=== PATIENT | male | born 1970 | race Caucasian/White ===

== ENCOUNTER 2021-02-19 11:26 | Inpatient (IN) | payer SELFPAY ==
--- NOTE | 2021-02-19 14:10 | RAD REPORT ---
EXAM DESCRIPTION: RAD - Chest Single View - 02/19/2021 2:02 pm CLINICAL HISTORY: SOB Chest pain. COMPARISON: No comparisons FINDINGS: Portable technique limits examination quality. Significant bilaterally pulmonary opacities are present, most notable and significantly worse involvi ng the left lung, most compatible with pulmonary infection. The heart is normal in size. No displaced fractures.
[2021-02-19 15:53] LABS: Absolute Lymphocytes (CBC) 0.9 K/uL (0.7-4.9); Basophils % 0.4 % (0-1.3); Hematocrit 42.5 % (39.6-49.0); Lymphocytes % 7.6 % (15.3-44.8); MPV 9.5 fL (7.6-11.3); RBC Red Blood Cell Count 4.67 M/uL (4.33-5.43)
[2021-02-19 15:58] LABS: Protime INR 1.26
[2021-02-19 16:11] LABS: ALT/SGPT 88 U/L (12-78); AST/SGOT 50 U/L (15-37); Albumin 2.6 g/dL (3.4-5.0); Alkaline Phosphatase 73 U/L (45-117); BUN Blood Urea Nitrogen 25 mg/dL (7-18); Bicarbonate 28 mmol/L (21-32); Bilirubin Direct 0.2 mg/dL (0-0.2); Bilirubin Total 0.5 mg/dL (0.2-1.0); Glucose Level 257 mg/dL (74-106); Magnesium 2.4 mg/dL (1.8-2.4); NT PRO-BNP 17 pg/mL (<125); Potassium 4.4 mmol/L (3.5-5.1); Protein, Total 7.5 g/dL (6.4-8.2); Sodium Level 136 mmol/L (136-145); Troponin (Emerg Dept Use Only) < 0.02 ng/mL (0.0-0.045)
--- NOTE | 2021-02-19 17:27 | EDPHYS ---
Physician Documentation [facility] Name: Shashank Mariano Jr Age: 51 yrs Sex: Male : 1970 Arrival Date: 02/19/2021 Time: 11:30 Bed 24 Private MD: ED Physician Derrick Fatima HPI: 02/19 19:55 This 51 yrs old Male presents to ER via Ambulatory with complaints of kdr Shortness Of Breath - covid+. 19:55 The patient has shortness of breath at rest, with light activity. Onset: The kdr symptoms/episode began/occurred gradually, 3 day(s) ago. Duration: The symptoms are continuous, and are steadily getting worse. The patient's shortness of breath is aggravated by coughing, eating, exertion, light activity. Associated signs and symptoms: Pertinent positives: non-productive cough, Pertinent negatives: fever, hemoptysis, visual changes. Severity of symptoms: At their worst the symptoms were moderate in the emergency department the symptoms are unchanged. The patient has not experienced similar symptoms in the past. The patient has been recently seen by a physician:. Patient was diagnosed with Covid on February 19. Historical: - Allergies: 13:28 No Known Allergies; kg - Home Meds: 13:28 Lisinopril Oral BID [Active]; amlodipine 2.5 mg tab 1 tab once daily [Active]; kg carvedilol 25 mg oral tab 1 tab 2 times per day [Active]; - PMHx: 13:28 Hypertensive disorder; kg - PSHx: 13:28 None; kg - Immunization history:: Adult Immunizations not up to date, Client reports having NOT received the Covid vaccine. - Social history:: Smoking status: Patient denies any tobacco usage or history of. Patient uses alcohol, occasionally. ROS: 19:55 Constitutional: Negative for fever, chills, and weight loss, Eyes: Negative for injury, kdr pain, redness, and discharge, ENT: Negative for injury, pain, and discharge, Neck: Negative for injury, pain, and swelling, Cardiovascular: Negative for chest pain, palpitations, and edema, Abdomen/GI: Negative for abdominal pain, nausea, vomiting, diarrhea, and constipation, Back: Negative for injury and pain, : Negative for injury, bleeding, discharge, and swelling, MS/Extremity: Negative for injury and deformity, Skin: Negative for injury, rash, and discoloration, Neuro: Negative for headache, weakness, numbness, tingling, and seizure activity. Psych: Negative for depression, anxiety, suicide ideation, homicidal ideation, and hallucinations, Allergy/Immunology: Negative for hives, rash, and allergies, Endocrine: Negative for neck swelling, polydipsia, polyuria, polyphagia, and marked weight changes, Hematologic/Lymphatic: Negative for swollen nodes, abnormal bleeding, and unusual bruising. 19:55 Respiratory: Positive for dyspnea on exertion, shortness of breath, at rest. Exam: 19:55 Constitutional: This is a well developed, well nourished patient who is awake, alert, kdr and in no acute distress. Head/Face: Normocephalic, atraumatic. Eyes: Pupils equal round and reactive to light, extra-ocular motions intact. Lids and lashes normal. Conjunctiva and sclera are non-icteric and not injected. Cornea within normal limits. Periorbital areas with no swelling, redness, or edema. Neck: Trachea midline, no thyromegaly or masses palpated, and no cervical lymphadenopathy. Supple, full range of motion without nuchal rigidity, or vertebral point tenderness. No Meningismus. Chest/axilla: Normal chest wall appearance and motion. Nontender with no deformity. No lesions are appreciated. Cardiovascular: Regular rate and rhythm with a normal S1 and S2. No gallops, murmurs, or rubs. Normal PMI, no JVD. No pulse deficits. Respiratory: Lungs have equal breath sounds bilaterally, clear to auscultation and percussion. No rales, rhonchi or wheezes noted. No increased work of breathing, no retractions or nasal flaring. Abdomen/GI: Soft, non-tender, with normal bowel sounds. No distension or tympany. No guarding or rebound. No evidence of tenderness throughout. Back: No spinal tenderness. No costovertebral tenderness. Full range of motion. Skin: Warm, dry with normal turgor. Normal color with no rashes, no lesions, and no evidence of cellulitis. MS/ Extremity: Pulses equal, no cyanosis. Neurovascular intact. Full, normal range of motion. Neuro: Awake and alert, GCS 15, oriented to person, place, time, and situation. Cranial nerves II-XII grossly intact. Motor strength 5/5 in all extremities. Sensory grossly intact. Cerebellar exam normal. Normal gait. Psych: Awake, alert, with orientation to person, place and time. Behavior, mood, and affect are within normal limits. Vital Signs: 13:20 BP 112 / 68; Pulse 92; Resp 26 S; Temp 98.1(O); Pulse Ox 85% on R/A; Weight 88.45 kg kg (R); Height 6 ft. 0 in. (182.88 cm) (R); Pain 7/10; 13:31 Pulse Ox 91% on R/A; kg 19:10 BP 115 / 87; Pulse 85; Resp 18 S; Pulse Ox 96% on 3 lpm NC; iw 13:20 Body Mass Index 26.45 (88.45 kg, 182.88 cm) kg MDM: 17:26 Patient medically screened. kdr 19:55 Data reviewed: vital signs, nurses notes, lab test result(s), radiologic studies. kdr Counseling: I had a detailed discussion with the patient and/or guardian regarding: the historical points, exam findings, and any diagnostic results supporting the discharge/admit diagnosis, lab results, radiology results, the need for outpatient follow up. 02/19 15:09 Order name: Basic Metabolic Panel 02/19 15:09 Order name: CBC with Diff 02/19 15:09 Order name: LFT's; Complete Time: 17:21 iw 02/19 15:09 Order name: Magnesium; Complete Time: 17:21 iw 02/19 15:09 Order name: NT PRO-BNP; Complete Time: 17:21 02/19 15:09 Order name: PT-INR; Complete Time: 17:21 iw 02/19 15:09 Order name: Troponin (emerg Dept Use Only); Complete Time: 17:21 iw 02/19 15:09 Order name: Blood Culture Adult (2) 02/19 15:09 Order name: Basic Metabolic Panel; Complete Time: 17:21 EDMS 02/19 15:09 Order name: CBC with Automated Diff; Complete Time: 17:21 EDMS 02/19 18:02 Order name: CRP la1 02/19 18:03 Order name: C-Reactive Protein EDMS 02/20 06:38 Order name: CBC with Automated Diff EDMS 08/07 07:10 Order name: D-Dimer EDHI 02/19 13:33 Order name: XRAY Chest (1 view); Complete Time: 14:20 kg 02/19 15:09 Order name: EKG; Complete Time: 15:09 02/19 15:09 Order name: Cardiac monitoring; Complete Time: 18:34 02/19 15:09 Order name: EKG - Nurse/Tech; Complete Time: 18:34 02/19 15:09 Order name: IV Saline Lock; Complete Time: 15:36 02/19 15:09 Order name: Labs collected and sent; Complete Time: 15:36 02/19 15:09 Order name: O2 Per Protocol; Complete Time: 18:34 02/19 15:09 Order name: O2 Sat Monitoring; Complete Time: 18:34 02/20 07:45 Order name: Comprehensive Metabolic Panel EDHI 02/20 07:45 Order name: Lipid Profile EDHI 02/20 07:45 Order name: C-Reactive Protein EDHI 02/20 07:45 Order name: T4 Free EDHI 02/20 07:45 Order name: Thyroid Stimulating Hormone EDHI 02/20 07:45 Order name: Ferritin EDHI 02/20 08:44 Order name: Hemoglobin A1c EDHI Administered Medications: No medications were administered Disposition Summary: 02/19/21 17:26 Hospitalization Ordered Hospitalization Status: Inpatient Admission kdr Provider: Jb Aviles Condition: Fair kdr Problem: new kdr Symptoms: have improved kdr Bed/Room Type: Standard kdr Location: [facility] ER HOLD(02/19/21 21:48) cg Room Assignment: ERHOLD-(02/19/21 21:48) cg Diagnosis - SARS-associated coronavirus as the cause of diseases classified elsewhere kdr - Other viral pneumonia kdr - Shortness of breath kdr - Acute respiratory failure with hypoxia - 85% on room air kdr Forms: - Medication Reconciliation Form kdr - SBAR form kdr Signatures: Dispatcher [employer] [facility] Derrick Fatima MD MD kdr Jennifer Smith RN RN Juanito Patton PA PA [id number] Garcia, Cindy, RN RN cg Celsa Junior RN RN kg Corrections: (The following items were deleted from the chart) 21:48 17:26 Telemetry/MedSurg (Inpatient) kdr cg 21:48 17:26 kdr cg
--- NOTE | 2021-02-19 17:27 | ER ---
Nurse's Notes [facility] Name: Shashank Mariano Jr Age: 51 yrs Sex: Male : 1970 Arrival Date: 02/19/2021 Time: 11:30 Bed 24 Private MD: Diagnosis: SARS-associated coronavirus as the cause of diseases classified elsewhere;Other viral pneumonia;Shortness of breath;Acute respiratory failure with hypoxia-85% on room air Presentation: 02/19 13:20 Initial Sepsis Screen: Does the patient meet any 2 criteria? RR > 20 per min. HR > 90 kg bpm. Yes Does the patient have a suspected source of infection? Yes: Productive cough/pneumonia. Risk Assessment: Do you want to hurt yourself or someone else? Patient reports no desire to harm self or others. Onset of symptoms was February 11, 2021. 13:20 Acuity: DEE DEE 3 kg 13:24 Chief complaint: Patient states: Sent over from PCP for low 02. COVID + 8/6. Upon kg arrival to triage 85% RA then up to 93% after sitting. Coronavirus screen: Client denies travel out of the [place] in the last 14 days. At this time, unable to obtain information related to travel outside the [place] Client presents with at least one sign or symptom that may indicate coronavirus-19. Standard/surgical mask placed on the client. Provider contacted for isolation considerations. Client reports previous positive COVID test result. Date of collection: February 19, 2021. Ebola Screen: Patient negative for fever greater than or equal to 101.5 degrees Fahrenheit, and additional compatible Ebola Virus Disease symptoms Patient denies exposure to infectious person. Patient denies travel to an Ebola-affected area in the 21 days before illness onset. 13:24 Method Of Arrival: Ambulatory kg Triage Assessment: 13:28 General: Appears in no apparent distress. Behavior is calm, cooperative, appropriate kg for age, quiet. Pain: Complains of pain in chest. Respiratory: Reports shortness of breath cough that is pain with cough since 02/11 Onset: The symptoms/episode began/occurred gradually, the patient has mild shortness of breath. Historical: - Allergies: 13:28 No Known Allergies; kg - Home Meds: 13:28 Lisinopril Oral BID [Active]; amlodipine 2.5 mg tab 1 tab once daily [Active]; kg carvedilol 25 mg oral tab 1 tab 2 times per day [Active]; - PMHx: 13:28 Hypertensive disorder; kg - PSHx: 13:28 None; kg - Immunization history:: Adult Immunizations not up to date, Client reports having NOT received the Covid vaccine. - Social history:: Smoking status: Patient denies any tobacco usage or history of. Patient uses alcohol, occasionally. Screenin:32 Abuse screen: Denies threats or abuse. Denies injuries from another. Nutritional kg screening: No deficits noted. Tuberculosis screening: No symptoms or risk factors identified. Fall Risk None identified. No fall in past 12 months (0 pts). No secondary diagnosis (0 pts). No IV (0 pts). Ambulatory Aid- None/Bed Rest/Nurse Assist (0 pts). Gait- Normal/Bed Rest/Wheelchair (0 pts) Mental Status- Oriented to own ability (0 pts). Total Traylor Fall Scale indicates No Risk (0-24 pts). Assessment: 13:32 Respiratory: Airway is patent Trachea midline Respiratory effort is even, labored, kg Respiratory pattern is tachypnea. 17:00 Reassessment: Patient appears in no apparent distress at this time. Patient and/or iw family updated on plan of care and expected duration. Pain level reassessed. Patient is alert, oriented x 3, equal unlabored respirations, skin warm/dry/pink. 19:11 Reassessment: Patient appears in no apparent distress at this time. Patient and/or iw family updated on plan of care and expected duration. Pain level reassessed. Patient is alert, oriented x 3, equal unlabored respirations, skin warm/dry/pink. Vital Signs: 13:20 BP 112 / 68; Pulse 92; Resp 26 S; Temp 98.1(O); Pulse Ox 85% on R/A; Weight 88.45 kg kg (R); Height 6 ft. 0 in. (182.88 cm) (R); Pain 7/10; 13:31 Pulse Ox 91% on R/A; kg 19:10 BP 115 / 87; Pulse 85; Resp 18 S; Pulse Ox 96% on 3 lpm NC; iw 13:20 Body Mass Index 26.45 (88.45 kg, 182.88 cm) kg ED Course: 11:30 Patient arrived in ED. as 13:28 Triage completed. kg 13:28 Arm band placed on left wrist. kg 13:32 Patient has correct armband on for positive identification. kg 14:01 XRAY Chest (1 view) In Process Unspecified. EDMS 15:00 Derrick Fatima MD is Attending Physician. kdr 15:03 Jennifer Smith, RN is Primary Nurse. iw 15:36 Initial lab(s) drawn, by me, sent to lab. Inserted saline lock: 20 gauge in right iw antecubital area, using aseptic technique. Blood collected. 17:24 Jb Aviles MD is Hospitalizing Provider. kdr Administered Medications: No medications were administered Outcome: 17:26 Decision to Hospitalize by Provider. kdr 08 17:22 Patient left the ED. iw Signatures: Dispatcher [employer] EDMS Derrick Fatima MD MD kdr Radha Busby Irene, RN RN iw Celsa Junior RN RN kg
--- NOTE | 2021-02-19 19:21 | P.HP ---
Certification for Inpatient Patient admitted to: Inpatient With expected LOS: >2 Midnights Patient will require the following post-hospital care: None Practitioner: I am a practitioner with admitting privileges, knowledge of patient current condition, hospital course, and medical plan of care. Services: Services provided to patient in accordance with Admission requirements found in Title 42 Section 412.3 of the Code of Federal Regulations Patient History Date of Service: 02/19/21 Reason for admission: COVID-19 pneumonia History of Present Illness: 51-year-old male with history of hypertension presents the emergency department for shortness of breath. Patient reports testing positive today on 02/19/2021 but has had symptoms for about a week now. Patient nonvaccinated, was hypoxic in the 80s on room air currently trying nasal cannula between 4 and 6 L to maintain saturations greater 90%. Labs significant for white blood cell count 11.4 glucose 257 AST 50 ALT 88 CRP pending. Chest x-ray demonstrates bilateral COVID-19 pneumonia. ED provider wishes to admit for further evaluation and management. - Past Medical/Surgical History -: Hypertension -: None Psychosocial/ Personal History: Lives with family - Family History Family History: Reviewed- Non-Contributory - Social History Smoking Status: Never smoker Alcohol use: No CD- Drugs: No Caffeine use: Yes Place of Residence: Home Review of Systems General: Fever, Chills, Weakness, Malaise Respiratory: Cough, Dry, Shortness of Breath Physical Examination - Physical Exam General: Alert, In no apparent distress, Oriented x3 HEENT: Atraumatic, PERRLA, Mucous membr. moist/pink, EOMI, Sclerae nonicteric Neck: Supple, 2+ carotid pulse no bruit, No LAD, Without JVD or thyroid abnormality Respiratory: Diminished, Other (Tachypnea, dyspnea) Cardiovascular: Regular rate/rhythm, Normal S1 S2 Gastrointestinal: Normal bowel sounds, No tenderness Musculoskeletal: No tenderness Integumentary: No rashes Neurological: Normal gait, Normal speech, Normal strength at 5/5 x4 extr, Normal tone, Normal affect Lymphatics: No axilla or inguinal lymphadenopathy - Studies Laboratory Data (last 24 hrs) 02/19/21 15:20: PT 14.5 H, INR 1.26 02/19/21 15:20: WBC 11.40 H, Hgb 14.2, Hct 42.5, Plt Count 318 02/19/21 15:20: Sodium 136, Potassium 4.4, BUN 25 H, Creatinine 0.84, Glucose 257 H, Magnesium 2.4, Total Bilirubin 0.5, AST 50 H, ALT 88 H, Alkaline Phosphatase 73 Assessment and Plan - Plan Assessment: Acute hypoxic respiratory failure secondary to COVID-19 pneumonia Hypertension Hyperglycemia Plan: Acute hypoxic respiratory failure secondary to COVID-19 pneumonia: Continue with IV steroids, oral supplements, ivermectin, daily room air saturations, supplemental oxygen as needed, pharmacy consult for baricitinib. Pulmonology consulted. Hypertension: Continue medications adjust as necessary Hyperglycemia: Patient not a known diabetic, continue with A1c may need to adjust to ADA diet/sliding scale depending on sugars. DVT PPX: Eliquis Code status: Full Discharge Plan: Home Plan to discharge in: Greater than 2 days - Advance Directives Does patient have a Living Will: No Does patient have a Durable POA for Healthcare: No - Code Status/Comfort Care Code Status Assessed: Yes (Full code) Critical Care: No Time Spent Managing Pts Care (In Minutes): 55
[2021-02-19] MEDS ORDERED: MELATONIN 5 MG TABLET PO PRN (20:34)
[2021-02-19] MEDS ORDERED: ACETAMINOPHEN 500 MG TAB PO PRN (20:34)
[2021-02-19] MEDS ORDERED: BENZONATATE 100 MG CAP PO PRN (20:34)
[2021-02-19] MEDS ORDERED: ONDANSETRON 4 MG/2 ML VIAL IV PRN (20:34)
[2021-02-19 20:49] VITALS: BMI 26.4
[2021-02-19] MEDS: APIXABAN 5 MG TABLET PO SCH (21:00)
[2021-02-19] MEDS: ASCORBIC ACID 500 MG TABLET PO SCH (21:00)
[2021-02-19] MEDS ORDERED: METHYLPREDNISOLONE 40 MG INJ IV SCH (21:00)
[2021-02-19] MEDS ORDERED: METHYLPREDNISOLONE 40 MG INJ ONE (22:35)
[2021-02-19] MEDS ORDERED: ASCORBIC ACID 500 MG TABLET ONE (22:35)
[2021-02-19] MEDS ORDERED: APIXABAN 5 MG TABLET ONE (22:35)
[2021-02-20 06:37] LABS: Absolute Lymphocytes (CBC) 0.9 K/uL (0.7-4.9); Basophils % 0.4 % (0-1.3); Hematocrit 38.3 % (39.6-49.0); Lymphocytes % 13.1 % (15.3-44.8); MPV 9.3 fL (7.6-11.3); RBC Red Blood Cell Count 4.25 M/uL (4.33-5.43)
[2021-02-20 07:44] LABS: ALT/SGPT 84 U/L (12-78); AST/SGOT 44 U/L (15-37); Albumin 2.3 g/dL (3.4-5.0); Alkaline Phosphatase 67 U/L (45-117); BUN Blood Urea Nitrogen 22 mg/dL (7-18); Bicarbonate 29 mmol/L (21-32); Bilirubin Total 0.4 mg/dL (0.2-1.0); Ferritin 1420.6 ng/mL (26-388); Glucose Level 202 mg/dL (74-106); HDL Cholesterol 21 mg/dL (40-60); LDL Cholesterol, Calculated 110 (<130); Potassium 3.9 mmol/L (3.5-5.1); Protein, Total 6.8 g/dL (6.4-8.2); Sodium Level 138 mmol/L (136-145)
[2021-02-20] MEDS ORDERED: IVERMECTIN 3 MG TABLET PO SCH (09:00)
[2021-02-20] MEDS ORDERED: VITAMIN D 1000 UNIT TAB PO SCH (09:00)
[2021-02-20] MEDS ORDERED: ASPIRIN EC 81 MG TAB PO SCH (09:00)
[2021-02-20] MEDS ORDERED: ZINC SULFATE 220 MG CAP PO SCH (09:00)
[2021-02-20] MEDS ORDERED: THIAMINE HCL 100 MG TABLET PO SCH (09:00)
[2021-02-20] MEDS: ASCORBIC ACID 500 MG TABLET PO SCH ×2 (09:33→14:05)
[2021-02-20] MEDS: APIXABAN 5 MG TABLET PO SCH (09:33)
[2021-02-20] MEDS ORDERED: METHYLPREDNISOLONE 125 MG INJ ONE (09:52)
[2021-02-20] MEDS ORDERED: VITAMIN D 1000 UNIT TAB ONE (09:53)
[2021-02-20] MEDS ORDERED: ZINC SULFATE 220 MG CAP ONE (09:53)
[2021-02-20] MEDS ORDERED: ASCORBIC ACID 500 MG TABLET ONE ×2 (09:53→14:27)
[2021-02-20] MEDS ORDERED: THIAMINE HCL 100 MG TABLET ONE (09:53)
[2021-02-20] MEDS ORDERED: APIXABAN 5 MG TABLET ONE (09:53)
[2021-02-20] MEDS ORDERED: ASPIRIN EC 81 MG TAB PO ONE (09:53)
[2021-02-20 10:11] VITALS: O2SAT 93
[2021-02-20] MEDS ORDERED: D50W 25 GM/50 ML SYRINGE IV PRN (13:44)
[2021-02-20] MEDS ORDERED: GLUCAGON 1 MG/VIAL IM PRN (13:44)
--- NOTE | 2021-02-20 13:46 | P.PN ---
Subjective Date of Service: 02/20/21 Chief Complaint: COVID-19 pneumonia Subjective: Improving (feeling better, increased appetite. denies any n/v/d) Physical Examination - Vital Signs Temperature: 99.3 F Blood Pressure: 114/71 Pulse: 77 Respirations: 20 Pulse Ox (%): 96 - Studies Laboratory Data (last 24 hrs) 02/19/21 15:20: PT 14.5 H, INR 1.26 02/19/21 15:20: WBC 11.40 H, Hgb 14.2, Hct 42.5, Plt Count 318 02/19/21 15:20: Sodium 136, Potassium 4.4, BUN 25 H, Creatinine 0.84, Glucose 257 H, Magnesium 2.4, Total Bilirubin 0.5, AST 50 H, ALT 88 H, Alkaline Phosphatase 73 Assessment And Plan Physician Review Additional Text: Physical exam: General: alert and oriented x3, NAD, cooperative HEENT: normal conjunctiva, EOMI Respiratory: 95% on 3L CV: regular rate GI: soft, non-tender, non-distended Integumentary: no rashes MSK: no swelling Assessment: Acute hypoxic respiratory failure secondary to COVID-19 pneumonia Hypertension Hyperglycemia Plan: Acute hypoxic respiratory failure secondary to COVID-19 pneumonia: Continue with IV steroids, oral supplements, ivermectin, daily room air saturations, supplemental oxygen as needed, pharmacy consult for baricitinib. Pulmonology consulted. Hypertension: Continue medications adjust as necessary Hyperglycemia: blood sugar in 200s, A1c 10.9. start moderate accuchecks and sliding scale insulin Patient not a known diabetic, continue with A1c may need to adjust to ADA diet/sliding scale depending on sugars. DVT PPX: Eliquis Code status: Full
[2021-02-20] MEDS ORDERED: METHYLPREDNISOLONE 125 MG INJ IV SCH (14:00)
--- NOTE | 2021-02-20 14:51 | P.CNS ---
Date of Consult: 02/20/21 (Pt agreed to FT) Reason for Consult: COVID penumonia Chief Complaint: COVID-19 pneumonia History of Present Illness: AGe 51 HXof HTN AW COVID penumonia/ hypoxic/ Allergies No Known Allergies Allergy (Verified 02/20/21 05:22) Home Medications: Amlodipine [Norvasc*] 2.5 mg PO DAILY 02/20/21 Carvedilol [Coreg] 25 mg PO BID 02/20/21 Lisinopril [Zestril] 10 mg PO DAILY 02/20/21 - Past Medical/Surgical History Diabetic: No -: Hypertension -: None Psychosocial/ Personal History: Lives with family - Social History Alcohol use: No CD- Drugs: No Caffeine use: Yes Place of Residence: Home Review of Systems General: Weakness Respiratory: Shortness of Breath Physical Examination Temp Pulse Resp BP Pulse Ox 99.3 F 77 20 114/71 96 02/20/21 14:15 02/20/21 14:15 02/20/21 14:15 02/20/21 14:15 02/20/21 14:15 General: Alert, In no apparent distress, Oriented x3, Cooperative Laboratory Data (last 24 hrs) 02/19/21 15:20: PT 14.5 H, INR 1.26 02/19/21 15:20: WBC 11.40 H, Hgb 14.2, Hct 42.5, Plt Count 318 02/19/21 15:20: Sodium 136, Potassium 4.4, BUN 25 H, Creatinine 0.84, Glucose 257 H, Magnesium 2.4, Total Bilirubin 0.5, AST 50 H, ALT 88 H, Alkaline Phos phatase 73 - Problems (1) Pneumonia due to COVID-19 virus Current Visit: Yes Status: Acute Plan: AGe 51 AW COVID penumonia/CXRY Left worse than R / on NC O2/ labs reviewed / poss DC home today
[2021-02-20 15:08] VITALS: BP 123/81; TEMP 98.7
[2021-02-20] MEDS ORDERED: INSULIN -REGULAR HUMAN 50 UNIT/0.5 ML ML SQ SCH (16:30)
--- NOTE | 2021-02-20 20:21 | P.DS ---
Admission Date: 02/19/21 Discharge Date: 02/20/21 Disposition: ROUTINE DISCHARGE Discharge Condition: GOOD Reason for Admission: COVID-19 pneumonia Consultations: Pulm - Dr. Valverde Procedures: CXR (02/19): Significant bilaterally pulmonary opacities are present, most notable and significantly worse involving the left lung, most compatible with pulmonary infection. The heart is normal in size. No displaced fractures. Problem List Acute hypoxic respiratory failure secondary to COVID-19 pneumonia Hypertension Uncontrolled Diabetes Mellitus type 2, non-insulin dependent Brief History of Present Illness: 51-year-old male with history of hypertension presents the emergency department for shortness of breath. Patient reports testing positive today on 02/19/2021 but has had symptoms for about a week now. Patient nonvaccinated, was hypoxic in the 80s on room air currently trying nasal cannula between 4 and 6 L to maintain saturations greater 90%. Labs significant for white blood cell count 11.4 glucose 257 AST 50 ALT 88 CRP pending. Chest x-ray demonstrates bilateral COVID-19 pneumonia. ED provider wishes to admit for further evaluation and management. Hospital Course: Patient improved rather quickly with treatment per COVID protocol. He maintained SpO2 >90% on minimal oxygen supplementation, at times breathing comfortably on room air. He was able to ambulate well with minimal worsening hypoxia, tolerated his diet. He was discharged home with home oxygen. Discharged with prednisone, vitamin supplementation, tessalon perles, and eliquis for 1 month due to his COVID-19 infection and elevated d-dimer. Patient's HgbA1c was found to be 10.6. He was not enthusiastic on starting insulin and stated he had his diabetes under control with diet. He was amenable to starting metformin, checking glc levels, and following up with his PCP. Vital Signs/Physical Exam: Temp Pulse Resp BP Pulse Ox 98.7 F 79 20 123/81 93 02/20/21 12:00 02/20/21 12:00 02/20/21 12:00 02/20/21 12:02/20/21 12:00 General: Alert, In no apparent distress, Oriented x3 HEENT: Mucous membr. moist/pink, Sclerae nonicteric Respiratory: Other (nonlabored respirations on 2L NC) Cardiovascular: No edema, Regular rate/rhythm Gastrointestinal: Soft and benign, Non-distended, No tenderness Musculoskeletal: No erythema, No tenderness Integumentary: No rashes Neurological: Normal speech, Normal strength at 5/5 x4 extr Laboratory Data at Discharge: WBC 6.70 K/uL (4.3-10.9) D 02/20/21 06:09 Hgb 13.1 g/dL (13.6-17.9) L 02/20/21 06:09 Hct 38.3 % (39.6-49.0) L 02/20/21 06:09 Plt Count 289 K/uL (152-406) 02/20/21 06:09 PT 14.5 SECONDS (9.5-12.5) H 02/19/21 15:20 INR 1.26 02/19/21 15:20 Sodium 138 mmol/L (136-145) 02/20/21 06:09 Potassium 3.9 mmol/L (3.5-5.1) 02/20/21 06:09 BUN 22 mg/dL (7-18) H 02/20/21 06:09 Creatinine 0.61 mg/dL (0.55-1.3) 02/20/21 06:09 Glucose 202 mg/dL (74-106) H 02/20/21 06:09 Magnesium 2.4 mg/dL (1.8-2.4) 02/19/21 15:20 Total Bilirubin 0.4 mg/dL (0.2-1.0) 02/20/21 06:09 AST 44 U/L (15-37) H 02/20/21 06:09 ALT 84 U/L (12-78) H 02/20/21 06:09 Alkaline Phosphatase 67 U/L (45-117) 02/20/21 06:09 Triglycerides 187 mg/dL (<150) H 02/20/21 06:09 Cholesterol 168 mg/dL (<200) 02/20/21 06:09 HDL Cholesterol 21 mg/dL (40-60) L 02/20/21 06:09 Cholesterol/HDL Ratio 8.00 02/20/21 06:09 Home Medications: Amlodipine [Norvasc*] 2.5 mg PO DAILY 02/20/21 Apixaban [Eliquis] 5 mg PO BID 30 Days #60 tablet 02/20/21 Ascorbic Acid [Vitamin C*] 500 mg PO QID 30 Days #120 tablet 02/20/21 Benzonatate [Tessalon Perle*] 100 mg PO TID PRN 5 Days #15 cap 02/20/21 Blood Sugar Diagnostic [Blood Glucose Test Strip] 1 each MC TIDWM 30 Days #90 strip 02/20/21 Blood-Glucose Meter [Contour Next One] 1 each MC TID 30 Days #1 each 02/20/21 Carvedilol [Coreg] 25 mg PO BID 02/20/21 Cholecalciferol (Vitamin D3) [Vitamin D 1000 Iu Tab*] 4,000 unit PO DAILY 30 Days #120 tab 02/20/21 Ivermectin 18 mg PO ONCE 1 Days #6 tablet 02/20/21 Lancets [Super Thin Lancets] 1 each MC TID 30 Days #90 each 02/20/21 Lisinopril [Zestril] 10 mg PO DAILY 02/20/21 Metformin HCl 500 mg PO BID 30 Days #60 tablet 02/20/21 Rivaroxaban [Xarelto] 20 mg PO BEDTIME 30 Days #30 tablet 02/20/21 Thiamine HCl [Vitamin B-1*] 200 mg PO DAILY 30 Days #60 tablet 02/20/21 Zinc Sulfate [Zinc Sulfate*] 220 mg PO DAILY 30 Days #30 cap 02/20/21 predniSONE [Deltasone] 20 mg PO SEECOM 14 Days #21 tab 02/20/21 New Medications: Blood Sugar Diagnostic [Blood Glucose Test Strip] 1 each MC TIDWM 30 Days #90 strip Blood-Glucose Meter [Contour Next One] 1 each TID 30 Days #1 each Apixaban [Eliquis] 5 mg PO BID 30 Days #60 tablet Ivermectin 18 mg PO ONCE 1 Days #6 tablet Metformin HCl 500 mg PO BID 30 Days #60 tablet predniSONE [Deltasone] 20 mg PO SEECOM 14 Days #21 tab Lancets [Super Thin Lancets] 1 each MC TID 30 Days #90 each Benzonatate [Tessalon Perle*] 100 mg PO TID PRN 5 Days #15 cap PRN Reason: Cough Thiamine HCl [Vitamin B-1*] 200 mg PO DAILY 30 Days #60 tablet Ascorbic Acid [Vitamin C*] 500 mg PO QID 30 Days #120 tablet Cholecalciferol (Vitamin D3) [Vitamin D 1000 Iu Tab*] 4,000 unit PO DAILY 30 Days #120 tab Rivaroxaban [Xarelto] 20 mg PO BEDTIME 30 Days #30 tablet Zinc Sulfate [Zinc Sulfate*] 220 mg PO DAILY 30 Days #30 cap Physician Discharge Instructions: You were found to have COVID-19 pneumonia. You were treated with steroids, vitamin supplementation, and oxygen supplementation. He had significant improvement. You are discharged home to continue these medications. You are also discharged home with oxygen supplementation to be used as needed to maintain her oxygen saturation greater than 90%. It is expected for your oxygen saturation to drop below 90% temporarily with exertion/ambulation. This is okay as long as your oxygen returns to 90% or greater within a minute or two after rest. COVID-19 significantly increases your risk to develop a blood clot. You are discharged with a prescription for blood thinner, Eliquis. Is recommended to take this for 30 days as prescribed. If this is not covered by your insurance, recommend taking aspirin 325 mg instead. Follow-up with Dr. Valverde in 1 week. Please call his office to schedule the telephone/video appointment. Your hemoglobin A1c was found to be 10.8, indicating uncontrolled diabetes. You are discharged to start Metformin twice a day. Please check your blood glucose three times a day. Document your glucose levels, and follow-up with your PCP in 3-5 days. The steroids you are prescribed will cause a temporary increase in your blood glucose levels. If you have any questions about your hospital stay for the nurse please feel free to contact the nurse at [phone]. If symptoms worsen please report back to the Emergency Room. Diet: ADA Activity: Ad ruiz Followup: Zeus Valverde MD [ACTIVE - CAN ADMIT] - ALINE JENNINGS [Primary Care Provider] - Time spent managing pt's care (in minutes): 40
--- NOTE | 2021-02-21 08:03 | EKG ---
Test Date: 2021-02-19 Test Time: 18:28:52 System Safety Engineer: DARRYN MEASUREMENT RESULTS: Intervals: Rate: 84 VA: 188 QRSD: 110 QT: 370 QTc: 437 Marcella: P: 37 VA: 188 QRS: -13 T: 41 INTERPRETIVE STATEMENTS: Normal sinus rhythm Normal ECG No previous ECG available for comparison Electronically Signed On 02-21-21 08:00:33 CDT by Carlos Mcneill
== END 2021-02-20 16:57 | disposition home or self-care (01) | DRG 177 ==
LOC: ER 11:26 → ERHOLD 18:58
PROVIDERS: ADMIT Hospitalist; ATTEND Hospitalist
DX: U07.1 COVID-19 (principal); J12.82 Pneumonia due to coronavirus disease 2019; J96.01 Acute respiratory failure with hypoxia; I10 Essential (primary) hypertension; E11.65 Type 2 diabetes mellitus with hyperglycemia; Z79.899 Other long term (current) drug therapy; Z79.01 Long term (current) use of anticoagulants; Z79.84 Long term (current) use of oral hypoglycemic drugs; Z79.52 Long term (current) use of systemic steroids
CPT/HCPCS: 36415; 71045; 80048; 80053; 80061; 80076; 82728; 83036; 83735; 83880; 84439; 84443; 84484; 85025; 85379; 85610; 86140; 87040; 93005; 94760; 99283; J2920; J2930